=== PATIENT | female | born 1985 | race Caucasian/White ===

== ENCOUNTER → 2025-05-06 13:47 | Outpatient (REF) | payer OTHER, SELFPAY | LOC: HWRAD 13:47 | PROVIDERS: ATTENDING PHYSICIAN Obstetrics & Gynecology; FAMILY PHYSICIAN Hospitalist | DX: Z32.01 Encounter for pregnancy test, result positive (principal) | CPT/HCPCS: 76801 ==

== ENCOUNTER → 2025-05-28 15:29 | Outpatient (REF) | payer OTHER, SELFPAY | LOC: PNTC 15:29 | PROVIDERS: ATTENDING PHYSICIAN Student in an Organized Health Care Education/Training Program | DX: Z36.0 Encounter for antenatal screening for chromosomal anomalies (principal); Z36.82 Encounter for antenatal screening for nuchal translucency; O09.521 Supervision of elderly multigravida, first trimester; O99.211 Obesity complicating pregnancy, first trimester; O34.211 Maternal care for low transverse scar from previous cesarean delivery | CPT/HCPCS: 36415 ==

== ENCOUNTER → 2025-06-23 13:18 | Outpatient (REF) | payer OTHER, SELFPAY | LOC: PNTC 13:18 | PROVIDERS: ATTENDING PHYSICIAN Obstetrics & Gynecology | DX: O99.212 Obesity complicating pregnancy, second trimester (principal); O34.211 Maternal care for low transverse scar from previous cesarean delivery; O09.522 Supervision of elderly multigravida, second trimester | CPT/HCPCS: 76805; 93976 ==

== ENCOUNTER → 2025-07-21 13:16 | Outpatient (REF) | payer OTHER, SELFPAY | LOC: PNTC 13:16 | PROVIDERS: ATTENDING PHYSICIAN Obstetrics & Gynecology | DX: O99.212 Obesity complicating pregnancy, second trimester (principal); Z36.3 Encounter for antenatal screening for malformations; Z36.86 Encounter for antenatal screening for cervical length; O09.522 Supervision of elderly multigravida, second trimester; O34.211 Maternal care for low transverse scar from previous cesarean delivery; O43.212 Placenta accreta, second trimester | CPT/HCPCS: 76811; 76817; 93976 ==